=== PATIENT | male | born 1970 | race African-American/Black ===

== ENCOUNTER 2018-02-23 09:13 | Emergency (ER) | payer BC | END 2018-02-23 10:15 | disposition home or self-care (01) | LOC: ER 10:15 | DX: K64.9 Unspecified hemorrhoids (principal); E11.9 Type 2 diabetes mellitus without complications; E78.00 Pure hypercholesterolemia, unspecified; I10 Essential (primary) hypertension; Z88.6 Allergy status to analgesic agent | CPT/HCPCS: 99283 ==

== ENCOUNTER 2018-03-02 13:44 | Day surgery (SDC) | payer BC ==
[~2018-03-02 13:44] MED LIST: LIDOCAINE 1% PF 2 ML VIAL. ID; ONDANSETRON PF 4 MG/2 ML VIAL. IV; PROCHLORPERAZINE 10 MG/2 ML VIAL. IV; fentaNYL PF VIAL 100 MCG/2 ML VIAL IV
[2018-03-02 14:22] LABS: POC GLUCOSE 86 mg/dL (70-99)
[2018-03-02] MEDS: IV RINGERS,LACTATED 1000ML 1,000 ML IV (14:28)
[2018-03-02] MEDS ORDERED: fentaNYL PF VIAL 250 MCG/5 ML VIAL (16:22)
[2018-03-02] MEDS ORDERED: ROCURONIUM 50 MG/5 ML VIAL. (16:22)
[2018-03-02] MEDS ORDERED: ONDANSETRON PF 4 MG/2 ML VIAL. (16:24)
[2018-03-02] MEDS ORDERED: LIDOCAINE 2% PF Vial for OR 5 ML VIAL. (16:24)
[2018-03-02] MEDS ORDERED: DEXAMETHASONE SOD PHOS 20 MG/5 ML VIAL. (16:24)
[2018-03-02] MEDS ORDERED: PROPOFOL 20 ML IV (16:24)
[2018-03-02] MEDS ORDERED: SEVOFLURANE 61 TO 120 MINUTES. IH (16:25)
[2018-03-02] MEDS ORDERED: NEOSTIGMINE METHYLSULFATE 5 MG/5 ML SYRINGE. ×2 (16:25→18:06)
[2018-03-02] MEDS ORDERED: GLYCOPYRROLATE 1 MG/5 ML VIAL. ×2 (16:26→17:35)
[2018-03-02] MEDS ORDERED: MIDAZOLAM HCL/PF 2 MG/2 ML VIAL. (17:19)
[2018-03-02] MEDS: BUPIVACAINE-EPI 0.25%-1:200000 50 ML VIAL. (17:35)
[2018-03-02] MEDS: GELATIN SPONGE SIZE 100. (17:56)
[2018-03-02] MEDS ORDERED: MORPHINE SULFATE 2 MG/ML DISP.SYRIN. (18:10)
[2018-03-02] MEDS: MORPHINE SULFATE 2 MG/ML DISP.SYRIN. IV ×2 (18:19→18:29)
[2018-03-02] MEDS ORDERED: fentaNYL PF VIAL 100 MCG/2 ML VIAL (18:35)
[2018-03-02] MEDS: oxyCODONE IR 5 MG TABLET PO (18:40)
[2018-03-02] MEDS: fentaNYL PF VIAL 100 MCG/2 ML VIAL IV (18:40)
== END 2018-03-02 19:54 | disposition home or self-care (01) ==
LOC: SURG 13:44
DX: K64.5 Perianal venous thrombosis (principal); E78.00 Pure hypercholesterolemia, unspecified; K08.409 Partial loss of teeth, unspecified cause, unspecified class; I10 Essential (primary) hypertension; E11.9 Type 2 diabetes mellitus without complications; F12.90 Cannabis use, unspecified, uncomplicated; F17.210 Nicotine dependence, cigarettes, uncomplicated; Z82.49 Family history of ischemic heart disease and other diseases of the circulatory system; Z88.6 Allergy status to analgesic agent; Z79.82 Long term (current) use of aspirin; Z79.899 Other long term (current) drug therapy; Z79.84 Long term (current) use of oral hypoglycemic drugs
CPT/HCPCS: 46320; 82962; A7015; J0690; J1100; J2001; J2250; J2270; J2405; J2704; J2710; J3010; J3490

== ENCOUNTER 2021-07-01 17:28 | Emergency (ER) | payer BC, OTHER ==
[~2021-07-01] VITALS: Ht 175.3 cm; Wt 110.9 kg
[~2021-07-01 17:28] MED LIST changes: +ASPI-630 PO; +FENO135C PO; +GABA600T7 PO; +LIDO30CR2 TP; -LIDOCAINE 1% PF 2 ML VIAL. ID; +LISI10TA16 PO; +LOVA20TA2 PO; +METF500T16 PO; +METF850T8 PO; +MULT-658 PO; +NAPR-514 PO; -ONDANSETRON PF 4 MG/2 ML VIAL. IV; +OXYC5CAP PO; -PROCHLORPERAZINE 10 MG/2 ML VIAL. IV; -fentaNYL PF VIAL 100 MCG/2 ML VIAL IV
--- NOTE | 2021-07-01 19:43 | PHYS DOC ---
Past Medical History Past Medical History: Diabetes-Type II, High Cholesterol, Hypertension Past Surgical History: No Surgical History Additional Past Surgical Histo: RIGHT KNEE, RIGHT JAW Smoking Status: Never Smoker Alcohol Use: None Drug Use: Marijuana General Adult EDM: Chief Complaint: ABDOMINAL PAIN HPI: HPI: 51-year-old male past medical history of obesity, asthma, diabetes, hypertension, hyperlipidemia, and frequent marijuana use, presents to the ED with complaints of bilateral lower abdominal pain has been intermittent, crampy nature for the past 2 months. Patient states his symptoms pain is related to gas. Reports no associated vomiting white/yellow phlegm, is not bloody. States no relief with Pepto, diet soda, antacids and Gas-X. Was seen at [facility] by his PCP earlier today and was recommended Pepto. Reports pebble-like stools this morning that were brown in color. States he has been dieting/eating healthier for the last month, trying to decrease his hemoglobin A1c that was 8.3, is now 7.5. Reports no associated foreign travel or fever. No complaints-no incontinence, no dysuria, no hematuria, no rash or lesions. Last ate at 2am. Review of Systems: Review of Systems: Constitutional: Denies fever or chills. [] Eyes: Denies change in visual acuity. [] HENT: Denies nasal congestion or sore throat. [] Respiratory: Denies cough or shortness of breath. [] Cardiovascular: Denies chest pain or edema. [] GI: Denies melena or hematochezia : Denies dysuria or hematuria or incontinence Musculoskeletal: Denies back pain or joint pain. [] Integument: Denies rash or diaphoresis Neurologic: Denies headache, focal weakness or sensory changes. [] Endocrine: Denies polyuria or polydipsia. [] Lymphatic: Denies swollen glands. [] Psychiatric: Denies depression or anxiety. [] Heart Score: C/O Chest Pain: No Risk Factors: Risk Factors: DM, Current or recent (<one month) smoker, HTN, HLP, family history of CAD, obesity. Risk Scores: Score 0 - 3: 2.5% MACE over next 6 weeks - Discharge Home Score 4 - 6: 20.3% MACE over next 6 weeks - Admit for Clinical Observation Score 7 - 10: 72.7% MACE over next 6 weeks - Early Invasive Strategies Allergies: Allergies: Allergies Coded Allergies Type Severity Reaction Last Updated Verified acetaminophen Allergy Unknown 03/01/18 Yes Physical Exam: PE: Constitutional: Well developed, well nourished, no acute distress, non-toxic appearance, obese HENT: Normocephalic, atraumatic, Eyes: EOMI, conjunctiva normal, no discharge. Neck: Normal range of motion, supple, Cardiovascular: S1/2 present, regular rhythm Lungs & Thorax: Speaking in full sentences, bilateral equal chest rise, no tachypnea or increased work of breathing Abdomen: soft, reports LLQ and RLQ ttp, no guarding or rigidity, appears worse (more grimace) in LLQ than RLQ Skin: Warm, dry, no erythema, no rash. [] Back: No tenderness, no CVA tenderness. [] Extremities: No tenderness, no cyanosis, no lower extremity edema Neurologic: Alert and oriented X 3, normal motor function, normal sensory function, no focal deficits noted. [] Psychologic: Affect normal, judgement normal, mood normal. [] Pelvic: Chaperoned by male medic, external genitalia normal, no rash, swelling or lesions, Current Patient Data: Vital Signs: Vital Signs Date Time Temp Pulse Resp B/P (MAP) Pulse Ox O2 Delivery O2 Flow Rate FiO2 07/01/21 19:25 98.7 85 18 169/86 (113) 99 98.7 EKG: EKG: [] Radiology/Procedures: Radiology/Procedures: [] PATIENT: MILKA HAYWARD DACCOUNT: [id number] : 1970 LOCATION: ER AGE: 51 SEX: M EXAM STATUS: REG ER ORD. PHYSICIAN: FAMILIA TRAN DO REASON: lower abd pain PROCEDURE: CT ABD PELV W/ IV CONTRST ONLY EXAM: CT Abdomen and Pelvis with IV contrast CLINICAL HISTORY: lower abd pain COMPARISON: none TECHNIQUE: Helical CT of the abdomen and pelvis was performed following the administration of intravenous contrast. Axial, coronal and sagittal reformatted images were generated. PQRS compliance statement - One or more of the following individualized dose reduction techniques were utilized for this study: 1. Automated exposure control 2. Adjustment of the mA and/or kV according to patient size 3. Use of iterative reconstruction technique FINDINGS: Lower Chest: Lung bases are clear. Abdomen and Pelvis: Hepatic hypoattenuation, fatty liver. Gallbladder is normal. No biliary ductal dilatation. Pancreas is unremarkable. Spleen is normal in appearance. Adrenal glands are normal. Nonobstructing left interpolar renal calculus. Symmetric nephrograms. No focal renal lesion. No hydronephrosis. No hydroureter. Bladder is unremarkable. Moderate colonic stool content is seen. Appendix is normal. No small or large bowel dilatation. No bowel obstruction. No abdominal or pelvic ascites. No abdominal or pelvic lymphadenopathy. Bones: No aggressive osseous lesion is seen. IMPRESSION: 1. Hepatic hypoattenuation, likely fatty liver. 2. No bowel obstruction. 3. Nonobstructing left interpolar renal calculus. Electronically signed by: Lon Herrera MD (07/01/2021 9:37 PM) [facility] DICTATED and SIGNED BY: LON HERRERA MD DATE: 07/01/21 [id number] 0 Course & Med Decision Making: Course & Med Decision Making Pertinent Labs and Imaging studies reviewed. (See chart for details) Concern for intermittent, chronic lower abdominal pain in the setting of constipation per history and on CT results. I reviewed CT myself -abdominal and infrarenal aorta are within normal diameter in 2 dimensions. Patient with no active emesis in the ED. Will prescribe ondansetron and recommend to abstain from marijuana use until symptoms have resolved. Will also recommended mag nesium citrate. Patient is well-appearing, no distress and tolerates palpation on abdominal exam. Patient is tolerating oral intake. Patient is happy to know he has been discharged. Will prescribe Zofran ODT as needed. Will discharge home with strict ED return precautions were given for worsening abdominal pain, fever, bloody stools, bloody emesis or severe pain. Encouraged urgent outpatient follow-up with PMD and GI for definitive management, consider colonoscopy. Life-threatening processes were considered but are low suspicion at this time, given history, physical exam and ED workup. Pt was educated on all prescription medications and adverse effects. All patient's questions were answered and pt was stable at time of discharge. Life/limb-threatening differential includes but is not limited to, aortic dissection, aortic aneurysm, acute coronary syndrome, surgical abdomen (ap pendicitis, cholecystitis, ischemic bowel, strangulated hernia, etc), bowel obstruction or volvulus, bladder outlet obstruction, gastrointestinal bleeding, inflammatory bowel disease, peptic ulcer disease, ACS/CAD, sepsis, diverticular disease, ureterolithiasis, nephrolithiasis, ovarian or testicular torsion, ectopic , vaginal hemorrhage, or genitourinary infection. I have spoken with the patient and/or caregivers. I explained the patient's condition, diagnoses and treatment plan based on the information available to me at this time. I have answered the patient and/or caregiver's questions and addressed any concerns. The patient and/or caregivers have a good understanding of patient's diagnosis, condition and treatment plan as can be expected at this point. Vital signs have been stable. Patient's condition is stable and appropriate for discharge from the emergency department. Patient will pursue further outpatient evaluation with primary care physician or other designated or consulting physician as outlined in the discharge instructions. The patient and/or caregivers are agreeable to this plan of care and follow-up instructions have been explained in detail. The patient and/or caregivers have received these instructions in written form and have expressed an understanding of the discharge instructions. The patient and/or caregivers are aware that any significant change of condition or worsening of symptoms should prompt immediate return to this or the closest emergency department or call to 8. [facility] Disclaimer: Al[facility]to Disclaimer: This electronic medical record was generated, in whole or in part, using a voice recognition dictation system. Departure Departure Impression: Primary Impression: Chronic bilateral lower abdominal pain Additional Impression: Constipation Disposition: HOME / SELF CARE / HOMELESS Condition: STABLE Referrals: MARLIN AHMADI JR, MD (PCP) Follow-up with your primary care physician in 24 to 48 hours OR FOLLOW UP WITH FAMILY MEDICINE: [address] [place] [address] Patient Instructions: Abdominal Pain, Constipation, Adult Additional Instructions: FOLLOW UP WITH GASTROENTEROLOGY: FOR DEFINITIVE MANAGEMENT of lower abdominal pain, consider lower endoscopy [facility] [address] [place] [address] EMERGENCY DEPARTMENT GENERAL DISCHARGE INSTRUCTIONS Thank you for coming to [facility] Emergency Department (ED) today and trusting us with you care. We trust that you had a positive experience in our Emergency Department. If you wish to speak to the department management, you may call the Director at [phone]. YOUR FOLLOW UP INSTRUCTIONS ARE FOLLOWS: 1. Do you have a private Doctor? If you do not have a private doctor, please ask for a resource list of physicians or clinics that may be able to assist you with follow up care. 2. The Emergency Physicain has interpreted your x-rays. The X-Ray specialist will also review them. If there is a change in the findings, you will be notified in 48 hours when at all possible. 3. A lab test or culture has been done, your results will be reviewed and you will be notified if you need a change in treatment. ADDITIONAL INSTRUCTIONS AND INFORMATION: 1. Your care today has been supervised by a physician who is specially trained in emergency care. Many problems require more than one evaluation for a complete diagnosis and treatment. We recommend that you schedule your follow up appointment as recommended to ensure complete treatment of you illness or injury. If you are unable to obtain follow up care and continue to have a problem, or if your condition worsens, we recommend that you return to the ED. 2. We are not able to safely determine your condition over the phone nor are we able to give sound medical advice over the phone. For these safety reasons, if you call for medical advice we will ask you to come to the ED for further evaluation. 3. If you have any questions regarding these discharge instructions please call the ED at [phone]. SAFETY INFORMATION: In the interest of safety, wellness, and injury prevention; we encourage you to wear your sealbelt, if you smoke; quite smoking, and we encourage family to use a protective helmet for bicycling and other sporting events that present an increased risk for head injury. IF YOUR SYMPTOMS WORSEN OR NEW SYMPTOMS DEVELOP, OR YOU HAVE CONCERNS ABOUT YOUR CONDITION; OR IF YOUR CONDITION WORSENS WHILE YOU ARE WAITING FOR YOUR FOLLOW UP APPOINTMENT; EITHER CONTACT YOUR PRIMARY CARE DOCTOR, THE PHYSICIAN WHOSE NAME AND NUMBER YOU WERE GIVEN, OR RETURN TO THE ED IMMEDIATELY. Scripts Docusate Sodium (COLACE) 100 Mg Capsule 1 CAP PO BID for 5 Days, #10 CAP 0 Refills Prov: FAMILIA TRAN DO 07/01/21 Ondansetron (ONDANSETRON ODT) 4 Mg Tab.rapdis 1 TAB PO PRN Q6-8HRS PRN for VOMITING, #16 TAB Prov: FAMILIA TRAN DO 07/01/21 FAMILIA TRAN DO Jul 01, 2021 19:43
[2021-07-01 19:58] LABS: BILIRUBIN,URINE NEGATIVE (NEG); CLARITY,URINE CLEAR; COLOR,URINE YELLOW; NITRITE,URINE NEGATIVE (NEG); PROTEIN,URINE NEGATIVE (NEG-TRACE); UROBILINOGEN,URINE 0.2 mg/dL (0.2 mg/dL)
[2021-07-01] MEDS ORDERED: IV NORMAL SALINE 1000ML BAG 1,000 ML IV ONE (20:00)
[2021-07-01 20:05] LABS: BACTERIA,URINE 0 /HPF (0-FEW); BARBITURATES NEG (NEG); BENZODIAZEPINES NEG (NEG); CANNABINOIDS POS (NEG); COCAINE NEG (NEG); METHADONE NEG (NEG); OPIATES NEG (NEG); PHENCYCLIDINE NEG (NEG); RBC,URINE 0 /HPF (0-2)
[2021-07-01 20:06] LABS: AMPHETAMINE/METHAMPHETAMINE NEG (NEG)
[2021-07-01 20:29] LABS: BASO # 0.1 x10^3/uL (0.0-0.2); BASO % 1 % (0-3); EOS # 0.1 x10^3/uL (0.0-0.7); EOS % 1 % (0-3); HEMATOCRIT 43.4 % (39.0-53.0); HEMOGLOBIN 14.8 g/dL (13.0-17.5); LYMPH # 2.2 x10^3/uL (1.0-4.8); LYMPH % 30 % (24-48); MEAN CORPUSCULAR HEMOGLOBIN 30 pg (25-35); MEAN CORPUSCULAR HGB CONC 34 g/dL (31-37); MEAN CORPUSCULAR VOLUME 88 fL (79-100); MONO # 0.5 x10^3/uL (0.0-1.1); MONO % 7 % (0-9); NEUT # 4.4 x10^3/uL (1.8-7.7); NEUT % 61 % (31-73); PLATELET COUNT 252 x10^3/uL (140-400); RED BLOOD COUNT 4.95 x10^6/uL (4.30-5.70); RED CELL DISTRIBUTION WIDTH 13.7 % (11.5-14.5); WHITE BLOOD COUNT 7.2 x10^3/uL (4.0-11.0)
[2021-07-01 20:36] LABS: CALCIUM 10.5 mg/dL (8.5-10.1); GFR 95.7; POTASSIUM 4.1 mmol/L (3.5-5.1)
[2021-07-01 20:42] LABS: ALBUMIN/GLOBULIN RATIO 1.2 (1.0-1.7); MAGNESIUM 1.7 mg/dL (1.8-2.4); TOTAL BILIRUBIN 1.1 mg/dL (0.2-1.0); TOTAL PROTEIN 7.3 g/dL (6.4-8.2)
[2021-07-01] MEDS ORDERED: IOHEXOL 300 MG/ML 100ML VIAL. IV ONE (21:00)
[2021-07-01] MEDS ORDERED: CONTRAST GIVEN. MC PRN (21:00)
--- NOTE | 2021-07-01 21:39 | RAD ---
EXAM: CT Abdomen and Pelvis with IV contrast CLINICAL HISTORY: lower abd pain COMPARISON: none TECHNIQUE: Helical CT of the abdomen and pelvis was performed following the administration of intrave nous contrast. Axial, coronal and sagittal reformatted images were generated. PQRS compliance statement - One or more of the following individualized dose reduction techniques wer e utilized for this study: 1. Automated exposure control 2. Adjustment of the mA and/or kV according to patient size 3. Use of iterative reconstruction technique FINDINGS: Lower Chest: Lung bases are clear. Abdomen and Pelvis: Hepatic hypoattenuation, fatty liver. Gallbladder is normal. No biliary ductal dilatation. Pancreas i s unremarkable. Spleen is normal in appearance. Adrenal glands are normal. Nonobstructing left interp olar renal calculus. Symmetric nephrograms. No focal renal lesion. No hydronephrosis. No hydroureter. Bladder is unremarkable. Moderate colonic stool content is seen. Appendix is normal. No small or large bowel dilatation. No citlali wel obstruction. No abdominal or pelvic ascites. No abdominal or pelvic lymphadenopathy. Bones: No aggressive osseous lesion is seen. IMPRESSION: 1. Hepatic hypoattenuation, likely fatty liver. 2. No bowel obstruction. 3. Nonobstructing left interpolar renal calculus. Electronically signed by: Lon Guzman MD (07/01/2021 9:37 PM) [facility]
[2021-07-01] MEDS ORDERED: ONDA4TAB12 PO (22:05)
[2021-07-01] MEDS ORDERED: DOCU-109 PO (22:16)
[2021-07-01 22:40] VITALS: BP 190/83
== END 2021-07-01 22:41 | disposition home or self-care (01) ==
LOC: ER 17:28
DX: K59.00 Constipation, unspecified (principal); E11.9 Type 2 diabetes mellitus without complications; E78.00 Pure hypercholesterolemia, unspecified; I10 Essential (primary) hypertension; J45.909 Unspecified asthma, uncomplicated; F12.90 Cannabis use, unspecified, uncomplicated; Z88.6 Allergy status to analgesic agent
CPT/HCPCS: 36415; 74177; 80053; 80307; 81001; 82550; 83735; 85025; 96360; 99285; J7030; Q9967